=== PATIENT | male | born 1975 | race Asian ===

== ENCOUNTER 2017-10-12 21:07 | Inpatient (IN) | payer MEDICAID, OTHER ==
[2017-10-12] MEDS: CHARCOAL (AQ) 50 GM/240 ML BTL PO (21:22)
[2017-10-12] MEDS: SOD CHLORIDE 0.9% 1,000 ML IV (21:22)
[2017-10-12 22:10] LABS: ADD UMIC YES; UR ASCORBIC ACID NEGATIVE (NEGATIVE); UR BILIRUBIN (Dip) NEGATIVE (NEGATIVE); UR BLOOD (Dip) NEGATIVE (NEGATIVE); UR CLARITY CLEAR (CLEAR); UR COLOR YELLOW (YELLOW); UR GLUCOSE (Dip) NEGATIVE (NEGATIVE); UR KETONES (Dip) NEGATIVE (NEGATIVE); UR LEUKOCYTE ESTERASE (Dip) NEGATIVE Leu/ul (NEGATIVE); UR NITRITE (Dip) NEGATIVE (NEGATIVE); UR RBC 1 /HPF (0-5); UR SPECIFIC GRAVITY (Dip) 1.009 (1.003-1.030); UR TOTAL PROTEIN (Dip) 1+ mg/dl (NEGATIVE); UR UROBILINOGEN (Dip) NEGATIVE (NEGATIVE); UR WBC 2 /HPF (0-5)
[2017-10-12 22:11] LABS: ADD MAN DIFF? NO
[2017-10-12 22:14] LABS: WHITE BLOOD COUNT 9.4 10^3/ul (4.8-10.8)
[2017-10-12 22:14] LABS: BASOPHILS % 0.4 % (0.0-2.0); EOSINOPHILS # 0.1 10^3/ul (0.0-0.5); EOSINOPHILS % 1.2 % (0.0-7.0); HEMATOCRIT 37.8 % (42.0-52.0); LYMPHOCYTES # 2.3 10^3/ul (0.8-2.9); LYMPHOCYTES % 24.5 % (15.0-51.0); MEAN CORPUSCULAR HEMOGLOBIN 28.3 pg (29.0-33.0); MEAN CORPUSCULAR HGB CONC 31.7 g/dl (32.0-37.0); MEAN CORPUSCULAR VOLUME 89.2 fl (82.0-101.0); MONOCYTE # 0.7 10^3/ul (0.3-0.9); MONOCYTES % 7.8 % (0.0-11.0); NEUTROPHIL # 6.2 10^3/ul (1.6-7.5); NEUTROPHILS % 65.8 % (39.0-77.0); PLATELET COUNT 248 10^3/UL (140-415); RED BLOOD COUNT 4.24 10^6/ul (4.70-6.10); RED CELL DISTRIBUTION WIDTH 12.5 % (11.5-14.5)
[2017-10-12 22:23] LABS: AMPHETAMINE/METHAMPHETAMINE Negative (NEGATIVE); BARBITURATES Negative (NEGATIVE); BENZODIAZEPINES Negative (NEGATIVE); CANNABINOIDS Negative (NEGATIVE); COCAINE Negative (NEGATIVE); OPIATES Negative (NEGATIVE)
[2017-10-12 22:36] LABS: ALANINE AMINOTRANSFERASE 55 IU/L (13-69); ALBUMIN 3.4 g/dl (3.3-4.9); ALBUMIN/GLOBULIN RATIO 1.21; ALKALINE PHOSPHATASE 41 IU/L (42-121); ANION GAP 12 (8-16); ASPARTATE AMINO TRANSFERASE 35 IU/L (15-46); BILIRUBIN,INDIRECT 1.5 mg/dl (0-1.1); BILIRUBIN,TOTAL 1.5 mg/dl (0.2-1.3); BLOOD UREA NITROGEN 10 mg/dl (7-20); CALCIUM 8.6 mg/dl (8.4-10.2); CARBON DIOXIDE 21 mmol/L (21-31); CHLORIDE 108 mmol/L (97-110); CREATININE 0.81 mg/dl (0.61-1.24); GLUCOSE 170 mg/dl (70-220); SODIUM 138 mmol/L (135-144); TOTAL PROTEIN 6.2 g/dl (6.1-8.1)
[2017-10-12 22:42] LABS: ACETAMINOPHEN < 10.0 ug/ml (10.0-30.0); ETHANOL < 10.0 mg/dl; SALICYLATE < 1.0 mg/dl (5.0-30.0)
[2017-10-12 22:43] LABS: POTASSIUM 2.9 mmol/L (3.5-5.1)
[2017-10-12] MEDS: POTASSIUM CHLORIDE 100 ML IVPB (23:33)
[2017-10-12] MEDS: SOD CHLORIDE 0.9% IV (23:43)
[2017-10-13] MEDS ORDERED: ONDANSETRON 4 MG INJ IV
[2017-10-13] MEDS ORDERED: ACETAMINOPHEN 650MG/20.3ML CUP PO
[2017-10-13] MEDS ORDERED: ALBUTEROL/IPRATROPIUM (NEB) 3 ML AMP NEB
[2017-10-13] MEDS: SOD CHLORIDE 0.9% IV (00:52)
[2017-10-13] MEDS: CALCIUM GLUCONATE IV (00:52)
[2017-10-13] MEDS: SOD CHLORIDE 0.9% 1,000 ML IV ×4 (00:53→18:04)
[2017-10-13] MEDS ORDERED: NORepinephrine 8MG/250 ML (PMX 250 ML IV (01:00)
[2017-10-13 02:18] LABS: CALCIUM 8.8 mg/dl (8.4-10.2)
[2017-10-13 02:23] LABS: CALCIUM 9.6 mg/dl (8.4-10.2)
[2017-10-13] MEDS: POTASSIUM CHLORIDE 100 ML IVPB (02:56)
[2017-10-13 03:28] LABS: CALCIUM 10.3 mg/dl (8.4-10.2)
[2017-10-13 03:28] LABS: ANION GAP 11 (8-16); BLOOD UREA NITROGEN 11 mg/dl (7-20); CALCIUM 10.3 mg/dl (8.4-10.2); CARBON DIOXIDE 22 mmol/L (21-31); CHLORIDE 110 mmol/L (97-110); CREATININE 0.92 mg/dl (0.61-1.24); GLUCOSE 138 mg/dl (70-220); POTASSIUM 4.2 mmol/L (3.5-5.1); SODIUM 139 mmol/L (135-144)
[2017-10-13 04:44] LABS: CALCIUM 11.2 mg/dl (8.4-10.2)
[2017-10-13 04:58] LABS: ALANINE AMINOTRANSFERASE 56 IU/L (13-69); ALBUMIN 3.6 g/dl (3.3-4.9); ALKALINE PHOSPHATASE 48 IU/L (42-121); ANION GAP 10 (8-16); ASPARTATE AMINO TRANSFERASE 38 IU/L (15-46); BLOOD UREA NITROGEN 10 mg/dl (7-20); CALCIUM 11.2 mg/dl (8.4-10.2); CARBON DIOXIDE 22 mmol/L (21-31); CHLORIDE 109 mmol/L (97-110); CREATININE 0.88 mg/dl (0.61-1.24); GLUCOSE 127 mg/dl (70-220); MAGNESIUM 1.6 mg/dl (1.7-2.5); POTASSIUM 4.2 mmol/L (3.5-5.1); SODIUM 137 mmol/L (135-144); TOTAL PROTEIN 6.6 g/dl (6.1-8.1)
[2017-10-13 05:40] LABS: CALCIUM 11.8 mg/dl (8.4-10.2)
[2017-10-13 05:53] LABS: ADD MAN DIFF? NO
[2017-10-13 05:58] LABS: BASOPHILS % 0.3 % (0.0-2.0); EOSINOPHILS # 0.1 10^3/ul (0.0-0.5); EOSINOPHILS % 0.7 % (0.0-7.0); HEMATOCRIT 43.6 % (42.0-52.0); HEMOGLOBIN 14.1 g/dl (14.0-18.0); LYMPHOCYTES % 21.4 % (15.0-51.0); MEAN CORPUSCULAR HEMOGLOBIN 29.1 pg (29.0-33.0); MEAN CORPUSCULAR HGB CONC 32.3 g/dl (32.0-37.0); MEAN CORPUSCULAR VOLUME 90.1 fl (82.0-101.0); MEAN PLATELET VOLUME 9.7 fl (7.4-10.4); MONOCYTE # 0.6 10^3/ul (0.3-0.9); MONOCYTES % 5.8 % (0.0-11.0); NEUTROPHIL # 6.7 10^3/ul (1.6-7.5); PLATELET COUNT 259 10^3/UL (140-415); RED BLOOD COUNT 4.84 10^6/ul (4.70-6.10); RED CELL DISTRIBUTION WIDTH 12.4 % (11.5-14.5)
[2017-10-13 05:58] LABS: WHITE BLOOD COUNT 9.5 10^3/ul (4.8-10.8)
[2017-10-13 06:17] LABS: CALCIUM 12.3 mg/dl (8.4-10.2)
[2017-10-13] MEDS: FAMOTIDINE 20 MG INJ IV ×2 (10:37→20:12)
[2017-10-13] MEDS: MAGNESIUM SULFATE 2 GM/50 ML 50 ML IVPB (10:38)
[2017-10-14] MEDS: SOD CHLORIDE 0.9% 1,000 ML IV (03:31)
[2017-10-14 05:22] LABS: ADD MAN DIFF? NO
[2017-10-14 05:23] LABS: BASOPHIL # 0.1 10^3/ul (0.0-0.1); BASOPHILS % 0.4 % (0.0-2.0); EOSINOPHILS # 0.2 10^3/ul (0.0-0.5); EOSINOPHILS % 1.2 % (0.0-7.0); HEMATOCRIT 43.8 % (42.0-52.0); HEMOGLOBIN 14.1 g/dl (14.0-18.0); LYMPHOCYTES # 3.4 10^3/ul (0.8-2.9); MEAN CORPUSCULAR HEMOGLOBIN 28.6 pg (29.0-33.0); MEAN CORPUSCULAR HGB CONC 32.2 g/dl (32.0-37.0); MEAN CORPUSCULAR VOLUME 88.8 fl (82.0-101.0); MEAN PLATELET VOLUME 9.9 fl (7.4-10.4); MONOCYTES % 8.2 % (0.0-11.0); NEUTROPHILS % 62.6 % (39.0-77.0); PLATELET COUNT 278 10^3/UL (140-415); RED BLOOD COUNT 4.93 10^6/ul (4.70-6.10); RED CELL DISTRIBUTION WIDTH 12.1 % (11.5-14.5)
[2017-10-14 05:23] LABS: WHITE BLOOD COUNT 12.7 10^3/ul (4.8-10.8)
[2017-10-14 05:52] LABS: ANION GAP 10 (8-16); BLOOD UREA NITROGEN 13 mg/dl (7-20); CALCIUM 8.9 mg/dl (8.4-10.2); CARBON DIOXIDE 26 mmol/L (21-31); CHLORIDE 108 mmol/L (97-110); CREATININE 0.95 mg/dl (0.61-1.24); GLUCOSE 107 mg/dl (70-220); POTASSIUM 3.3 mmol/L (3.5-5.1); SODIUM 141 mmol/L (135-144)
[2017-10-14 05:54] LABS: PHOSPHORUS 4.5 mg/dl (2.5-4.9)
[2017-10-14 05:54] LABS: MAGNESIUM 1.7 mg/dl (1.7-2.5)
[2017-10-14] MEDS: POTASSIUM CHLORIDE (SR) 20 MEQ TAB PO (11:21)
[2017-10-14] MEDS: FAMOTIDINE 20 MG INJ IV ×2 (11:21→20:41)
[2017-10-14] MEDS ORDERED: CHLORPROMAZINE 25 MG INJ IM (11:30)
[2017-10-14] MEDS ORDERED: OLANZAPINE 5 MG TAB PO (11:30)
[2017-10-14] MEDS: SERTRALINE 50 MG TAB PO (11:54)
[2017-10-15] MEDS: SOD CHLORIDE 0.9% 1,000 ML IV (01:41)
[2017-10-15 07:37] LABS: ADD MAN DIFF? NO
[2017-10-15 07:43] LABS: BASOPHILS % 0.5 % (0.0-2.0); EOSINOPHILS # 0.1 10^3/ul (0.0-0.5); EOSINOPHILS % 1.3 % (0.0-7.0); HEMATOCRIT 45.7 % (42.0-52.0); HEMOGLOBIN 14.7 g/dl (14.0-18.0); LYMPHOCYTES # 2.2 10^3/ul (0.8-2.9); LYMPHOCYTES % 25.5 % (15.0-51.0); MEAN CORPUSCULAR HEMOGLOBIN 28.2 pg (29.0-33.0); MEAN CORPUSCULAR HGB CONC 32.2 g/dl (32.0-37.0); MEAN CORPUSCULAR VOLUME 87.5 fl (82.0-101.0); MEAN PLATELET VOLUME 9.8 fl (7.4-10.4); MONOCYTE # 0.7 10^3/ul (0.3-0.9); MONOCYTES % 7.7 % (0.0-11.0); NEUTROPHIL # 5.5 10^3/ul (1.6-7.5); NEUTROPHILS % 64.6 % (39.0-77.0); PLATELET COUNT 264 10^3/UL (140-415); RED BLOOD COUNT 5.22 10^6/ul (4.70-6.10); RED CELL DISTRIBUTION WIDTH 12.3 % (11.5-14.5)
[2017-10-15 07:43] LABS: WHITE BLOOD COUNT 8.4 10^3/ul (4.8-10.8)
[2017-10-15] MEDS: FAMOTIDINE 20 MG INJ IV (07:49)
[2017-10-15] MEDS: SERTRALINE 50 MG TAB PO (07:49)
[2017-10-15 08:01] LABS: ANION GAP 12 (8-16); BLOOD UREA NITROGEN 17 mg/dl (7-20); CALCIUM 9.3 mg/dl (8.4-10.2); CARBON DIOXIDE 25 mmol/L (21-31); CHLORIDE 108 mmol/L (97-110); GLUCOSE 114 mg/dl (70-220); POTASSIUM 4.1 mmol/L (3.5-5.1); SODIUM 141 mmol/L (135-144)
[2017-10-15 08:03] LABS: MAGNESIUM 1.8 mg/dl (1.7-2.5)
[2017-10-15 08:03] LABS: PHOSPHORUS 2.6 mg/dl (2.5-4.9)
[2017-10-16] MEDS: SERTRALINE 50 MG TAB PO (08:26)
[2017-10-16] MEDS: LOSARTAN 50 MG TAB PO (15:14)
[2017-10-16] MEDS: METOPROLOL 25 MG TAB PO ×2 (17:45→20:49)
[2017-10-17] MEDS ORDERED: LOSARTAN 50 MG TAB PO (09:00)
[2017-10-17] MEDS: SERTRALINE 50 MG TAB PO (09:22)
[2017-10-17] MEDS: LOSARTAN 50 MG TAB PO (09:22)
[2017-10-17] MEDS: METOPROLOL 25 MG TAB PO (09:22)
== END 2017-10-17 10:39 | DRG 918 ==
LOC: PP2 10-14 12:20 → ICU 23:40 → 5EC 10-14 12:34 → E/R 21:07 → 5EC 10-15 13:42
PROVIDERS: Internal Medicine
DX: T44.7X2A Poisoning by beta-adrenoreceptor antagonists, intentional self-harm, initial encounter (principal); T46.5X2A Poisoning by other antihypertensive drugs, intentional self-harm, initial encounter; F43.21 Adjustment disorder with depressed mood; T46.6X2A Poisoning by antihyperlipidemic and antiarteriosclerotic drugs, intentional self-harm, initial encounter; T46.1X2A Poisoning by calcium-channel blockers, intentional self-harm, initial encounter; I10 Essential (primary) hypertension; E78.00 Pure hypercholesterolemia, unspecified
CPT/HCPCS: 36415; 71045; 80048; 80053; 80307; 81001; 82310; 82962; 83735; 84100; 85025; 87081; 99291-25

== ENCOUNTER 2018-11-06 09:52 | Emergency (ER) | payer MEDICAID ==
[2018-11-06] MEDS: KETOROLAC 30 MG INJ IV (10:17)
[2018-11-06] MEDS: ONDANSETRON 4 MG INJ IV (10:17)
[2018-11-06] MEDS: SOD CHLORIDE 0.9% 1,000 ML IV (10:19)
[2018-11-06 10:26] LABS: ADD MAN DIFF? NO
[2018-11-06 10:28] LABS: BASOPHIL # 0.1 10^3/ul (0.0-0.1); BASOPHILS % 0.5 % (0.0-2.0); EOSINOPHILS # 0.3 10^3/ul (0.0-0.5); EOSINOPHILS % 2.3 % (0.0-7.0); HEMATOCRIT 47.9 % (42.0-52.0); HEMOGLOBIN 15.6 g/dl (14.0-18.0); LYMPHOCYTES % 17.8 % (15.0-51.0); MEAN CORPUSCULAR HEMOGLOBIN 28.8 pg (29.0-33.0); MEAN CORPUSCULAR HGB CONC 32.6 g/dl (32.0-37.0); MEAN CORPUSCULAR VOLUME 88.4 fl (82.0-101.0); MEAN PLATELET VOLUME 9.7 fl (7.4-10.4); MONOCYTE # 0.5 10^3/ul (0.3-0.9); MONOCYTES % 4.6 % (0.0-11.0); NEUTROPHIL # 8.2 10^3/ul (1.6-7.5); NEUTROPHILS % 74.3 % (39.0-77.0); PLATELET COUNT 278 10^3/UL (140-415); RED BLOOD COUNT 5.42 10^6/ul (4.70-6.10)
[2018-11-06 10:50] LABS: ALANINE AMINOTRANSFERASE 52 IU/L (13-69); ALBUMIN 4.5 g/dl (3.3-4.9); ALBUMIN/GLOBULIN RATIO 1.32; ALKALINE PHOSPHATASE 74 IU/L (42-121); ANION GAP 10 (5-13); ASPARTATE AMINO TRANSFERASE 31 IU/L (15-46); BILIRUBIN,INDIRECT 0.7 mg/dl (0-1.1); BILIRUBIN,TOTAL 0.7 mg/dl (0.2-1.3); BLOOD UREA NITROGEN 16 mg/dl (7-20); CALCIUM 9.6 mg/dl (8.4-10.2); CARBON DIOXIDE 25 mmol/L (21-31); CHLORIDE 101 mmol/L (97-110); CREATININE 1.25 mg/dl (0.61-1.24); Estimated GFR > 60 mL/min (>60); GLUCOSE 184 mg/dl (70-220); LIPASE 68 U/L (23-300); POTASSIUM 5.6 mmol/L (3.5-5.1); SODIUM 136 mmol/L (135-144); TOTAL PROTEIN 7.9 g/dl (6.1-8.1)
[2018-11-06] MEDS ORDERED: HYDROmorphONE 1 MG/ML SYG (11:57)
[2018-11-06] MEDS: HYDROmorphONE 0.5 MG/0.5 ML SYG IV (11:58)
== END 2018-11-06 12:36 | disposition home or self-care (01) ==
LOC: E/R 12:36
DX: N20.0 Calculus of kidney (principal); I10 Essential (primary) hypertension
CPT/HCPCS: 36415; 74176; 80053; 83690; 85025; 96374; 96375; 99285-25